=== PATIENT | female | born 1945 | race Caucasian/White ===

== ENCOUNTER → 2017-05-01 | Outpatient (CLI) | payer MEDICARE, OTHER ==
[2017-05-01 12:16] LABS: ALT 31 U/L (9-52); AST 22 U/L (14-36); Alkaline Phosphatase 79 U/L (38-126); Anion Gap 13 mmol/L; Blood Urea Nitrogen 16 mg/dL (7-17); Calcium 9.9 mg/dL (8.4-10.2); Carbon Dioxide 25 mmol/L (22-30); Chloride 105 mmol/L (98-107); Cholesterol 228 mg/dL (<200); Glucose 94 mg/dL (74-99); HDL Cholesterol 66 mg/dL (40-60); Non-African American GFR(MDRD) >60 (>60 ml/min/1.73 sqM); Potassium 4.4 mmol/L (3.5-5.1); Sodium 143 mmol/L (137-145); Total Bilirubin 0.4 mg/dL (0.2-1.3); Total Protein 7.1 g/dL (6.3-8.2)
== END | disposition home or self-care (01) ==
LOC: LABWHC1 10:56
PROVIDERS: ATTEND Internal Medicine Clinical Cardiac Electrophysiology
DX: E78.5 Hyperlipidemia, unspecified (principal); I10 Essential (primary) hypertension; I49.5 Sick sinus syndrome
CPT/HCPCS: 36415; 80053; 80061; 84443

== ENCOUNTER → 2018-02-05 | Outpatient (CLI) | payer MEDICARE, OTHER ==
--- NOTE | 2018-02-05 11:37 | CT ---
EXAMINATION TYPE: CT shoulder RT wo con DATE OF EXAM: 02/05/2018 COMPARISON: Prior CT right shoulder October 24, 2015. HISTORY: Pain in right shoulder, cannot raise arm up. History of right shoulder replacement surgery J une 2015. Pain in shoulder with complete rotator cuff tear per order. Preoperative planning. CT DLP: 321.5 mGycm Automated exposure control for dose reduction was used. FINDINGS: AC joint shows mild to moderate narrowing and capsular hypertrophy. No acute fracture is evident. There are well-corticated lucent defects in triangular pattern on sagittal images through the osseous glenoid with a single central fixating screw through the mid aspect of the osseous glenoid consisten t with plastic prosthesis. There is metallic hardware in the humeral head extending medially causing streak artifact. The metall ic humeral head appears high riding with anteriorly and superiorly displacement relative to the osseo us glenoid, there is advanced joint space loss with bone on metal formation seen on axial images from the medial aspect of metallic humeral head in the anterior osseous glenoid and the coracoid process and undersurface of the acromion. Supraspinatus and infraspinatus muscle bulk is relatively well-pres erved. There is moderate to severe interval atrophy of the subscapularis muscle bulk noted. IMPRESSION: HIGH RIDING METALLIC COMPONENT OF PROSTHESIS IS PRESENT DETAILED ABOVE WITH PRESERVATION OF SUPRAS PINATUS MUSCLE BULK, SUSPECTED RECENT OR ACUTE COMPLETE ROTATOR CUFF TEAR.
== END | disposition home or self-care (01) ==
LOC: RADCTMAIN 07:54
PROVIDERS: ATTEND Orthopaedic Surgery Sports Medicine
DX: M75.121 Complete rotator cuff tear or rupture of right shoulder, not specified as traumatic (principal); M17.12 Unilateral primary osteoarthritis, left knee; M25.561 Pain in right knee; Z96.611 Presence of right artificial shoulder joint

== ENCOUNTER → 2018-03-27 | Outpatient (CLI) | payer MEDICARE, OTHER ==
[2018-03-27 11:58] LABS: HCT 41.6 % (34.0-46.0); HGB 13.7 gm/dL (11.4-16.0); MCH 28.1 pg (25.0-35.0); MCHC 32.9 g/dL (31.0-37.0); MCV 85.3 fL (80.0-100.0); Mean Platelet Volume 6.3; Platelet Count 238 k/uL (150-450); RBC 4.88 m/uL (3.80-5.40); RDW 14.1 % (11.5-15.5); WBC 6.5 k/uL (3.8-10.6)
[2018-03-27 12:15] LABS: Appearance,Urine Clear (Clear); Bilirubin,Urine Negative (Negative); Blood,Urine Negative (Negative); Color,Urine Light Yellow; Glucose,Urine (UA) Negative (Negative); Ketones,Urine Negative (Negative); Leukocyte Esterase,Urine Negative (Negative); Nitrite,Urine Negative (Negative); Protein,Urine Negative (Negative); Specific Gravity,Urine 1.009 (1.001-1.035); Urobilinogen,Urine <2.0 mg/dL (<2.0)
[2018-03-27 12:16] LABS: Partial Thromboplastin Time 23.2 sec (22.0-30.0); Prothrombin Time 10.1 sec (9.0-12.0)
[2018-03-27 12:20] LABS: Albumin 4.3 g/dL (3.5-5.0); Calcium 9.7 mg/dL (8.4-10.2); Potassium 4.4 mmol/L (3.5-5.1); Total Bilirubin 0.6 mg/dL (0.2-1.3); Total Protein 7.2 g/dL (6.3-8.2)
== END | disposition home or self-care (01) ==
LOC: LABPAT 11:14
PROVIDERS: ATTEND Orthopaedic Surgery Sports Medicine
DX: Z01.812 Encounter for preprocedural laboratory examination (principal)
CPT/HCPCS: 36415; 80053; 81003; 85027; 85610; 85730; 87070

== ENCOUNTER 2018-04-03 10:31 | Inpatient (IN) | payer MEDICARE, OTHER ==
[2018-03-26 17:36] VITALS: BMI 24.2
[~2018-04-03 10:31] MED LIST: ACETAMINOPHEN TAB 500 MG TAB PO ONE; DEXAMETHASONE SOD PHOSPHATE 10 MG/ML 1 ML VIAL IV ONE; MELOXICAM 7.5 MG TAB PO ONE; MIDAZOLAM 2 MG/2 ML VIAL IV PRN; ONDANSETRON 4 MG/2 ML VIAL IVP ONE; TRANEXAMIC ACID 1,000 MG in SODIUM CHLORIDE 0.9% 50 ML IVPB ONE; ceFAZolin IN SWFI 2 GM/20 ML SYRINGE IVP ONE; fentaNYL (PF) 50 MCG/ML 2 ML AMP IV PRN
[2018-04-03] MEDS ORDERED: LIDOCAINE 1% 20 ML VIAL (10MG/ML) FOR IV START INTRADERMA ONE (11:15)
[2018-04-03] MEDS: LACTATED RINGERS 1,000 ML IV SCH ×2 (11:16→18:03)
[2018-04-03] MEDS ORDERED: GLYCOPYRROLATE 0.2 MG/ML 2 ML VIAL ONE (11:54)
[2018-04-03] MEDS ORDERED: MIDAZOLAM 2 MG/2 ML VIAL ONE (11:54)
[2018-04-03] MEDS ORDERED: TRANEXAMIC ACID 1,000 MG/10 ML VIAL ONE (11:54)
[2018-04-03] MEDS ORDERED: ROPIVACAINE 5 MG/ML 30 ML VIAL ONE (11:54)
[2018-04-03] MEDS ORDERED: LIDOCAINE 1% INJ 10MG/ML (20 ML MDV) ONE (11:54)
[2018-04-03] MEDS ORDERED: PHENYLEPHRINE-0.9% NACL SYG 1 MG/10 ML SYRINGE ONE (11:54)
[2018-04-03] MEDS ORDERED: NEOSTIGMINE 1 MG/ML 10 ML VIAL ONE (11:54)
[2018-04-03] MEDS ORDERED: ePHEDrine SULFATE/0.9% NACL/PF 50 MG/5 ML SYRINGE IV ONE (11:54)
[2018-04-03] MEDS ORDERED: PROPOFOL 10 MG/ML 20 ML VIAL IV ONE (11:54)
[2018-04-03] MEDS ORDERED: SODIUM CHLORIDE 0.9% 100 ML BAG ONE (11:54)
[2018-04-03] MEDS ORDERED: SUCCINYLCHOLINE CHLORIDE 100 MG/5 ML SYR IV ONE (11:54)
[2018-04-03] MEDS ORDERED: ceFAZolin 3,000 MG in SODIUM CHLORIDE 0.9% IRRIGATIO 3,000 ML IRRIGATION ONE (12:38)
[2018-04-03] MEDS ORDERED: LACTATED RINGERS 1,000 ML IV ONE ×3 (13:51→16:00)
[2018-04-03] MEDS ORDERED: VANCOMYCIN 1,000 MG VIAL MISCELLANE ONE (14:08)
[2018-04-03] MEDS ORDERED: HYDROmorphone 1 MG/ML 1 ML SYRINGE IVP PRN ×3 (14:57)
[2018-04-03] MEDS ORDERED: hydrOXYzine PAMOATE 25 MG CAP PO PRN (14:57)
[2018-04-03] MEDS ORDERED: PROCHLORPERAZINE SUPPOSITORY 25 MG SUPP RECTAL PRN (14:57)
[2018-04-03] MEDS ORDERED: ONDANSETRON 4 MG/2 ML VIAL IVP PRN (14:57)
[2018-04-03] MEDS ORDERED: TEMAZEPAM 15 MG CAP PO PRN (14:57)
[2018-04-03] MEDS ORDERED: diphenhydrAMINE 25 MG CAP PO PRN (14:57)
[2018-04-03] MEDS ORDERED: SENNOSIDES-DOCUSATE SODIUM 1 EACH TAB PO PRN (14:57)
[2018-04-03] MEDS ORDERED: HYDROcodone/APAP 7.5-325MG 1 EACH TAB PO PRN (15:05)
--- NOTE | 2018-04-03 15:29 | XR ---
Right shoulder HISTORY: Postop Single frontal view of the right shoulder Correlation to prior exam 01/19/2016 There is been interval revision of patient's right shoulder arthroplasty. There is anatomic alignment in this single view. There is an overlying drain present. There are overlying leads. IMPRESSION: Orthopedic follow-up.
[2018-04-03] MEDS: ceFAZolin IN SWFI 2 GM/20 ML SYRINGE IVP SCH (20:09)
[2018-04-03] MEDS: DOXYCYCLINE MONOHYDRATE 100 MG CAPSULE PO SCH (20:09)
[2018-04-03] MEDS: METOCLOPRAMIDE 5 MG/ML 2 ML VIAL IVP PRN (20:30)
--- NOTE | 2018-04-03 20:53 | OP ---
OPERATIVE REPORT DATE OF SERVICE: 04/03/2018 SURGEON: Jean Claude Rodriguez MD CERTIFIED RESPIRATORY THERAPIST: Bakari Uribe PA-C PREOPERATIVE DIAGNOSIS: Right shoulder failed total shoulder arthroplasty. POSTOPERATIVE DIAGNOSIS: Right shoulder failed total shoulder arthroplasty. OPERATION: Revision right total shoulder arthroplasty to a right reverse total shoulder arthroplasty. ANESTHESIA: General endotracheal. ESTIMATED BLOOD LOSS: 500 mL. DRAINS: One deep drain. COMPLICATIONS: None apparent. DISPOSITION: Post-Anesthesia Care Unit. INDICATIONS: Sammie is a very pleasant 72-year-old female who underwent a right total shoulder arthroplasty by myself a little over 2 years ago. She has recently developed instability in the shoulder. She said her shoulder subluxes anteriorly with elevation of the shoulder. Workup including x-rays and a CT scan showed a well-fixed glenoid component but a failed rotator cuff. At this point she feels that she has failed conservative management and would like to proceed with operative intervention. Both continued nonoperative management versus operative management were discussed with her. Operative management would involve conversion of her total shoulder arthroplasty to a semi-constrained reverse total shoulder arthroplasty. After a lengthy discussion about the pros and cons of both operative and nonoperative management, she had decided to proceed with operative intervention. The risks of procedure were discussed with her in detail. These risks include but are not limited to risk of infection, nerve damage, bleeding, pain, instability in the shoulder, loosening of the implant and deep infection. There is also a small risk of deep vein thrombosis which could lead to fatal pulmonary embolism. She understands that there is no guarantee as to the improvement of her symptoms. She expressed her understanding of the risks. All of her questions with regard to the procedure were answered to her satisfaction. Appropriate informed consent was obtained. DESCRIPTION OF THE PROCEDURE: The patient was identified in the preoperative holding area. Surgical site was marked by both the patient and myself. She was given 2 grams of Ancef IV for prophylactic purposes. She was then transferred to the operative suite. She was placed supine on the operating room table. General anesthetic was then administered and dosed per the anesthesia department without apparent complication. She was then placed into the beach chair position, well padded in preparation for surgery. Great care was taken to ensure that her neck was in neutral alignment, well padded and maintained that way throughout the operative procedure. Great care was also taken to ensure that her legs were appropriately padded as well. The patient's right upper extremity then prepped and draped in the usual sterile fashion. Standard surgical pause was undertaken to ensure that we were operating on the correct site and that appropriate preoperative antibiotics had been given. All staff in the room were in agreement and we proceeded. The previous incision was then marked with a surgical pen. The incision was then made with a 10 blade scalpel. Dissection was carried down sharply to the deltoid fascia. Hemostasis was achieved with electrocautery. The deltopectoral interval was identified at the level of the clavicle. A small band retractor was then placed onto the proximal deltoid. I then released the deltoid fascia on the lateral aspect of the cephalic vein. The vein was left in its bed medially. The cephalic vein was identified and protected throughout the entire case. I then identified the clavipectoral fascia. This was incised proximally to the level of the coracoacromial ligament. The coracoacromial ligament was left intact. I then used my finger to spread the interval between the conjoint tendon and the subscapularis. I felt for the axillary nerve, which was readily palpable. I then cleared the subacromial and subdeltoid spaces of bursal and scar tissue. I then utilized a Nichols retractor to hold the deltoid and expose the humeral head. The entire supraspinatus, infraspinatus and subscapularis was torn and retracted. I then released the capsule distally in a lazy-S fashion. I continued to release the capsule along the inferior neck in a vertical fashion to about the 6 o'clock position. Great care was taken to ensure the capsule was always visualized as it was released as to avoid injuring the axillary nerve. I then brought a Kiran fishing captain with the arm externally rotated and abducted. I continued to release the capsule inferomedially to the 4 o'clock position. I then proceeded with preparation of the humerus. The humeral head prosthesis was removed; the Vazquez taper was loosened and it was removed. I then proceeded with exposure of the glenoid. The Bhattman retractor was placed on the posterior glenoid rim. I then utilized a microsagittal saw to triangularly cut the [place] glenoid component. The [place] glenoid component was well fixed. There was no loosening. The microsagittal saw was then utilized to triangularly remove the superior and the 2 inferior pegs. I then was able to utilize needle-nosed pliers to unscrew the central aspect of the remaining glenoid component from the Regenerex peg. I then used the trephination reamer supplied in the Biomet set to over-ream the Regenerex peg. The Regenerex peg was then removed with needle-nosed pliers. There was a little bit of inferior bone loss in the glenoid. The remaining bone in the vault anterior, posteriorly and superiorly was in good condition. I then placed a threaded guidepin in the central aspect of the previous central hole for the Regenerex peg. I then placed a standard base plate reamer over the guidepin. Then the glenoid was reamed very gently to accept the standard glenoid base plate. A standard base plate was then opened and then inserted and impacted. I then placed a central screw. It was a 30 mm central screw. This screw had excellent purchase in bone. This compressed the base plate down very nicely. Of note the slight inferior bone loss I did place cancellous chips in the inferior bone loss aspect of the glenoid prior to placing the base plate. The base plate then impacted over the cancellous allograft chips. I then proceeded to place the peripheral screws. The superior and inferior screws were 20 and 25 mm, respectively. The anterior and posterior screws were 15 mm respectively. This provided good fixation of the glenoid base plate. I then placed a standard 36 mm Glenosphere. This was impacted into the base plate, slightly offset inferiorly. I then placed a standard tray and standard polyethylene trial onto the original stem, which was also well fixed. I was unable to reduce the shoulder at this point. We made a few attempts but realized that it was quite tight. At this point I made the decision to remove the humeral stem and recut the proximal humerus to lower the cut and allow for reduction of the reverse shoulder arthroplasty. I utilized a small bur to bur around the proximal aspect of the stem. I was then able to remove the stem without much bone loss at all. I then re-reamed the canal. The 12 mm reamer was left in place. I then recut the proximal humerus at 30 degrees of retrotorsion. I took approximately 5 to 8 mm more bone off of the proximal humerus. I then broached, starting with a 10 mm broach up to a 12 broach. I had an excellent interference fit with the 12 mm broach. This was broached in 30 degrees of retrotorsion. I then proceeded to trial. Now I was able to reduce the shoulder. I trialed with a standard polyethylene, a +3 polyethylene, and then with a +5 standard base plate and a standard polyethylene. The +5 base plate with standard polyethylene had good tension. It was a difficult reduction but not overly difficult. It was stable throughout a full range of motion. The conjoined tendon did not have any undue tension. The deltoid was also tensioned appropriately. I made the decision to proceed with a 12 mini stem, a +5 tray and a standard polyethylene. I then removed the trial stem and impacted the real 12 mini stem in 30 degrees of retrotorsion. I then placed the standard polyethylene onto the +5 tray on the back table. This was then impacted onto the stem. The shoulder was then reduced. Again it was taken through range of motion. It was very stable throughout range of motion. There was no impingement noted. I then proceeded with closure. I then felt for the axillary nerve, which was readily palpable and intact. I then thoroughly irrigated the wound with Irrisept wash. It was then further irrigated with sterile saline solution with antibiotic added. A deep drain was then placed and brought out proximally and away from the incision. Approximately 500 mg of vancomycin powder was then sprinkled deep into the wound. The deltopectoral interval was then closed with 0 Vicryl interrupted suture. Again the wound was thoroughly irrigated with sterile saline solution with antibiotic added via pulse lavage. The remaining 500 mg of vancomycin powder was then sprinkled into the wound. Subcutaneous tissue was closed with 2-0 Vicryl interrupted suture and the skin was closed with 3-0 Quill suture. Dermabond was applied to the incision. Sterile compressive dressing was then applied. The patient's right upper extremity was placed into a standard sling. All sponge and needle counts were deemed correct prior to closure. The patient tolerated the procedure without apparent complication. She was transferred to the recovery room in stable condition. MMODL / IJN: [id number] /
[2018-04-04] MEDS: HYDROcodone/APAP 7.5-325MG 1 EACH TAB PO PRN ×2 (01:13→08:25)
[2018-04-04] MEDS: LACTATED RINGERS 1,000 ML IV SCH ×2 (01:17→06:05)
[2018-04-04] MEDS: ceFAZolin IN SWFI 2 GM/20 ML SYRINGE IVP SCH (03:50)
[2018-04-04] MEDS: METOCLOPRAMIDE 5 MG/ML 2 ML VIAL IVP PRN (05:26)
[2018-04-04 06:55] LABS: Basophils % (A) 0 %; Eosinophils % (A) 0 %; HCT 30.3 % (34.0-46.0); Lymphocytes # (A) 1.4 k/uL (1.0-4.8); Lymphocytes % (A) 16 %; MCH 28.1 pg (25.0-35.0); MCHC 32.6 g/dL (31.0-37.0); MCV 86.3 fL (80.0-100.0); Mean Platelet Volume 6.6; Monocytes # (A) 0.7 k/uL (0-1.0); Monocytes % (A) 8 %; Neutrophils # (A) 6.4 k/uL (1.3-7.7); Neutrophils % (A) 74 %; Platelet Count 193 k/uL (150-450); RBC 3.51 m/uL (3.80-5.40); RDW 14.2 % (11.5-15.5); WBC 8.6 k/uL (3.8-10.6)
[2018-04-04 07:06] LABS: HGB 9.9 gm/dL (11.4-16.0)
[2018-04-04] MEDS: DOXYCYCLINE MONOHYDRATE 100 MG CAPSULE PO SCH (08:26)
[2018-04-04 08:48] VITALS: BP 108/62; PULSE 62; RESP 16; TEMP 98.3
[2018-04-04] MEDS ORDERED: LISINOPRIL 20 MG TAB PO SCH (09:00)
--- NOTE | 2018-04-04 09:41 | P.DS ---
Providers Date of admission: 04/03/18 10:31 Expected date of discharge: 04/04/18 Attending physician: Jean Claude Rodriguez Consults: 04/03/18 14:57 Consult Physician Routine Consulting Provider: Tim Russell Consult Reason/Comments: post op medical management Do you want consulting provider notified?: Yes Primary care physician: Tim Russell - Discharge Diagnosis(es) (1) Osteoarthritis of right shoulder Patient was admitted to the OR on 04/03/2018 to undergo a revision right reverse total shoulder arthroplasty. She had failed conservative measures as an outpatient and desired to proceed with elective surgery after given informed consent. She underwent the above procedure which he tolerated well without complication. Postoperative hospital course has remained without complication. On day of discharge she is afebrile, vital signs stable, labs within acceptable ranges, tolerating by mouth meds and diet, voiding without difficulty , positive flatus, denies abdominal pain or calf pain, pain is controlled on oral pain medication and has no new complaints. Wound is benign, neurovascular status is intact, calf is soft and nontender, abdomen soft and nontender. Review of systems is negative for numbness, tingling, fever, chills, chest pain , shortness breath, nausea, vomiting, dizziness, headaches, slurred speech or other. Current Visit: Yes Status: Acute Priority: Medium Procedures: Revision right reverse total shoulder arthroplasty Patient Condition at Discharge: Good Plan - Discharge Summary Discharge Rx Participant: Yes New Discharge Prescriptions: New Docusate [Colace] 100 mg PO BID #60 capsule HYDROcodone/APAP 7.5-325MG [[place] 7.5-325] 1 - 2 each PO Q6HR PRN #56 tab PRN Reason: Pain No Action Fexofenadine HCl [Zina Allergy] 180 mg PO DAILY Enalapril [Vasotec] 10 mg PO DAILY Aspirin 81 mg PO DAILY #30 chewable Ibuprofen [Motrin Ib] 200 - 400 mg PO Q6H PRN PRN Reason: Pain Discharge Medication List Enalapril [Vasotec] 10 mg PO DAILY 06/23/17 [History] Fexofenadine HCl [Zina Allergy] 180 mg PO DAILY 06/23/17 [History] Aspirin 81 mg PO DAILY #30 chewable 06/26/17 [Rx] Ibuprofen [Motrin Ib] 200 - 400 mg PO Q6H PRN 03/26/18 [History] Docusate [Colace] 100 mg PO BID #60 capsule 04/04/18 [Rx] HYDROcodone/APAP 7.5-325MG [[place] 7.5-325] 1 - 2 each PO Q6HR PRN #56 tab [Rx] Follow up Appointment(s)/Referral(s): Tim Russell MD [Primary Care Provider] - 04/11/18 9:30 am Jean Claude Rodriguez MD [STAFF PHYSICIAN] - 04/10/18 8:35 am Activity/Diet/Wound Care/Special Instructions: Keep wound clean and dry Take meds as directed Follow-up with Dr. Rodriguez in office maintain sling non weightbearing May shower in 3 days if no bleeding Discharge Disposition: HOME SELF-CARE
[2018-04-04 09:51] LABS: Basophils % (A) 0 %; Eosinophils % (A) 0 %; HCT 29.9 % (34.0-46.0); HGB 9.8 gm/dL (11.4-16.0); Lymphocytes # (A) 1.3 k/uL (1.0-4.8); Lymphocytes % (A) 15 %; MCH 28.1 pg (25.0-35.0); MCHC 32.7 g/dL (31.0-37.0); MCV 86.1 fL (80.0-100.0); Mean Platelet Volume 6.6; Monocytes # (A) 0.6 k/uL (0-1.0); Monocytes % (A) 7 %; Neutrophils # (A) 6.4 k/uL (1.3-7.7); Neutrophils % (A) 77 %; Platelet Count 184 k/uL (150-450); RBC 3.48 m/uL (3.80-5.40); RDW 14.2 % (11.5-15.5); WBC 8.4 k/uL (3.8-10.6)
[2018-04-04 10:00] LABS: Anion Gap 8 mmol/L; Blood Urea Nitrogen 17 mg/dL (7-17); Calcium 8.5 mg/dL (8.4-10.2); Carbon Dioxide 24 mmol/L (22-30); Chloride 103 mmol/L (98-107); Glucose 131 mg/dL (74-99); Sodium 135 mmol/L (137-145)
--- NOTE | 2018-04-04 13:22 | P.CONS ---
History of Present Illness - Reason for Consult Medical management of hypertension - History of Present Illness Patient is a 72-year-old white female well-known. She underwent a revision of a right total shoulder arthroplasty on 04/03/2018. This was performed by Dr. Rodriguez. He is resting comfortably one day later. She indicates she had a block at her shoulder and it not needed pain medications until just recently. She is complaining some mild nausea, and had an episode of emesis with breakfast this morning. She denies any chest pains, pressures, shortness of breath hematemesis, hematochezia, or melena. There is an incidental note of normocytic anemia on her blood work. Review of Systems All systems: negative Past Medical History Past Medical History: Hypertension, Osteoarthritis (OA) Additional Past Medical History / Comment(s): HX: BRADYCARDIA, SSS - PACEMAKER PLACED, [employer]. ORTHOSTATIC HYPOTENSION. RT SHOULDER PROBLEMS, ROTATOR CUFF TORN. HX FX RT HIP, LT ARM. History of Any Multi-Drug Resistant Organisms: None Reported Past Surgical History: Hysterectomy, Joint Replacement, Orthopedic Surgery, Pacemaker Additional Past Surgical History / Comment(s): ORTHO: RT PARTIAL HIP. LT TOTAL SHOULDER. LT KNEE SURGERY. ORIF LT ARM. RT TOTAL SHOULDER 2015. Past Anesthesia/Blood Transfusion Reactions: Postoperative Nausea & Vomiting ( PONV) Additional Past Anesthesia/Blood Transfusion Reaction / Comm: Had nausea, said medications helped. Type of Cardiac Device: Permanent Pacemaker Device Placement Date:: 06/2017 Past Psychological History: No Psychological Hx Reported Smoking Status: Never smoker Past Alcohol Use History: Occasional Past Drug Use History: None Reported - Past Family History Mother Family Medical History: No Reported History, CVA/TIA Medications and Allergies Home Medications Medication Instructions Recorded Confirmed Type Enalapril [Vasotec] 10 mg PO DAILY 06/23/17 04/03/18 History Fexofenadine HCl [Zina Allergy] 180 mg PO DAILY 06/23/17 04/03/18 History Aspirin 81 mg PO DAILY #30 chewable 06/26/17 04/03/18 Rx Ibuprofen [Motrin Ib] 200 - 400 mg PO Q6H PRN 03/26/18 04/03/18 History Docusate [Colace] 100 mg PO BID #60 capsule 04/04/18 Rx HYDROcodone/APAP 7.5-325MG [Foster 1 - 2 each PO Q6HR PRN #56 tab 04/04/18 Rx 7.5-325] Allergies Allergy/AdvReac Type Severity Reaction Status Date / Time No Known Allergies Allergy Verified 04/03/18 16:16 Physical Exam Vitals: Vital Signs Temp Pulse Resp BP Pulse Ox 04/04/18 07:30 98.3 F 62 16 108/62 96 04/03/18 23:00 97.8 F 68 18 101/58 96 04/03/18 19:52 98.0 F 60 14 112/63 99 04/03/18 18:45 65 108/60 04/03/18 18:30 62 113/57 04/03/18 18:15 52 L 106/62 04/03/18 18:00 59 L 103/50 04/03/18 17:45 68 96/49 04/03/18 17:30 69 96/49 04/03/18 17:15 72 99/62 04/03/18 17:05 97.6 F 67 18 107/63 98 04/03/18 17:00 97.2 F L 77 16 116/53 96 04/03/18 16:30 68 16 113/57 94 L 04/03/18 15:50 68 16 115/56 94 L 04/03/18 15:31 57 L 16 116/58 95 04/03/18 15:16 61 16 123/58 94 L 04/03/18 15:01 97.1 F L 84 18 149/73 95 Intake and Output 04/03/18 04/04/18 04/04/18 22:59 06:59 14:59 Intake Total 885 140 Output Total 170 Balance 885 -30 Intake: IV 225 Intake, IV Titration 300 140 Amount Lactated Ringers 1,000 ml 300 @ 100 mls/hr IV .Q10H PETER Rx#:[id number] Lactated Ringers 1,000 ml 140 @ 20 mls/hr IV .Q24H PETER Rx#:[id number] Oral 360 Output: Drainage 170 Right Shoulder 170 Other: Voiding Method Toilet # Voids 1 2 Weight 68.039 kg GENERAL: Well-appearing, well-nourished and in no acute distress. She is wearing a shoulder sling her right arm. HEAD: Atraumatic, normocephalic. EYES: Pupils equal round and reactive to light, extraocular movements intact, sclera anicteric, conjunctiva are normal. ENT:nares patent, oropharynx clear without exudates. Moist mucous membranes. NECK: Normal range of motion, supple without lymphadenopathy or JVD, no thyromegaly LUNGS: Breath sounds clear to auscultation bilaterally and equal. No wheezes rales or rhonchi. HEART: Regular rate and rhythm without murmurs, rubs or gallops.S1S2 Normal ABDOMEN: Soft, nontender, normoactive bowel sounds. No guarding, no rebound. No masses appreciated. EXTREMITIES: Right shoulder dressing is clean dry and intact, other extremities show Normal range of motion, no pitting or edema. No clubbing or cyanosis. NEUROLOGICAL: Cranial nerves II through XII grossly intact. Normal speech, normal gait. PSYCH: Normal mood, normal affect. SKIN: Warm, Dry, normal turgor, no rashes or lesions noted. Results CBC & Chem 7: 04/04/18 09:18 04/04/18 09:18 Labs: Abnormal Lab Results - Last 24 Hours (Table) 04/04/18 04/04/18 04/04/18 Range/Units 06:34 09:18 09:18 RBC 3.51 L 3.48 L (3.80-5.40) m/uL Hgb 9.9 L D 9.8 L (11.4-16.0) gm/dL Hct 30.3 L 29.9 L (34.0-46.0) % Sodium 135 L (137-145) mmol/L Glucose 131 H (74-99) mg/dL Assessment and Plan (1) Pacemaker Current Visit: Yes Status: Acute Code(s): Z95.0 - PRESENCE OF CARDIAC PACEMAKER SNOMED Code(s): 156345102 (2) Postoperative nausea and vomiting Current Visit: Yes Status: Acute Code(s): R11.2 - NAUSEA WITH VOMITING, UNSPECIFIED; Z98.890 - OTHER SPECIFIED POSTPROCEDURAL STATES SNOMED Code(s): 0999067 (3) Osteoarthritis of right shoulder Current Visit: Yes Status: Acute Priority: Medium Code(s): M19.011 - PRIMARY OSTEOARTHRITIS, RIGHT SHOULDER SNOMED Code(s): 519095510294078 (4) Essential (primary) hypertension Current Visit: Yes Status: Acute Code(s): I10 - ESSENTIAL (PRIMARY) HYPERTENSION SNOMED Code(s): 82418776 (5) Normocytic anemia Current Visit: Yes Status: Acute Code(s): D64.9 - ANEMIA, UNSPECIFIED SNOMED Code(s): 208497826 (6) Allergic rhinitis Current Visit: Yes Status: Acute Code(s): J30.9 - ALLERGIC RHINITIS, UNSPECIFIED SNOMED Code(s): 97332085 Plan: I'll renew her enalapril, hold her aspirin and Motrin this time. She is receiving Foster for pain from orthopedics. She is doing well and is medically cleared for discharge. Would ask her to follow-up in the office in the next 2 weeks regarding her anemia. Thank you for allowing us to participate in this patient's care.
== END 2018-04-04 14:46 | disposition home or self-care (01) | DRG 483 ==
LOC: 2ORMAIN 10:31 → 3SUR 15:00
PROVIDERS: ADMIT Orthopaedic Surgery Sports Medicine; ATTEND Orthopaedic Surgery Sports Medicine
PROC: 0RPJ0JZ Removal of Synthetic Substitute from Right Shoulder Joint, Open Approach (ICD-10-PCS; 2018-04-03)
PROC: 0RRJ00Z Replacement of Right Shoulder Joint with Reverse Ball and Socket Synthetic Substitute, Open Approach (ICD-10-PCS; principal; 2018-04-03 12:00)
DX: T84.89XA Other specified complication of internal orthopedic prosthetic devices, implants and grafts, initial encounter (principal); Z96.611 Presence of right artificial shoulder joint; Z96.641 Presence of right artificial hip joint; D64.9 Anemia, unspecified; I10 Essential (primary) hypertension; J30.9 Allergic rhinitis, unspecified; M19.011 Primary osteoarthritis, right shoulder; Z79.82 Long term (current) use of aspirin; Z90.710 Acquired absence of both cervix and uterus; Z79.899 Other long term (current) drug therapy; Z95.0 Presence of cardiac pacemaker; I95.1 Orthostatic hypotension; R11.2 Nausea with vomiting, unspecified; Z96.612 Presence of left artificial shoulder joint
CPT/HCPCS: 80048; 85025

== ENCOUNTER 2019-09-29 | Inpatient (IN) | payer MEDICARE | END 2019-10-02 14:29 | DRG 481 | PROVIDERS: ADMIT Orthopaedic Surgery Sports Medicine | PROC: 0QH706Z Insertion of Intramedullary Internal Fixation Device into Left Upper Femur, Open Approach (ICD-10-PCS; principal; 2019-09-30) | CPT/HCPCS: 71045; 73502; 80053; 81001; 85025; 85610; 85730; 86850; 86900; 86901; 87077; 87086; 87186; 93005; 96374; 96375; 99285 ==

== ENCOUNTER → 2022-04-10 | Outpatient (CLI) | payer MEDICARE ==
--- NOTE | 2022-04-10 15:09 | BD ---
EXAMINATION TYPE: Axial Bone Density DATE OF EXAM: 04/10/2022 COMPARISON: NONE CLINICAL HISTORY: 76 years year old Female. ICD-10 CODE: Z78.0 asymptomatic menopausal state Height: 5 FT 3 1/2 IN Weight: 140 FRAX RISK QUESTIONS: Alcohol (3 or more units per day): NO Family History (Parent hip fracture): YES Glucocorticoids (More than 3mos): NO (Ex: prednisone, prednisolone, methylprednisolone, dexamethasone, and hydrocortisone). History of Fracture in Adulthood: YES Secondary Osteoporosis: 1. Type 1 Diabetes: NO 2. Hyperthyroidism: NO 3. Menopause before 45: NO 4. Malnutrition: NO 5. Chronic liver disease: NO Rheumatoid Arthritis: NO Current Tobacco Use: NO RISK FACTORS HISTORY OF: Hip Fracture (Right/Left): LEFTAND RT When: 2020LEFT RT HIP 11 YEARS AGO History of Wrist Fracture: LEFT WRIST When: UNSURE Surgery to Spine/Hip(right/left)/Wrist (right/left): LEFT HIP 2019 ,RT HIP 11 YEARS AGO ,LEFT WRIST U NSURE OF YEAR Family History of Osteoporosis: UNSURE Active: YES Diet low in dairy products/other sources of calcium: NO Postmenopausal woman: YES Take estrogen and/or progesterone medications: NONE NOW Lost more than 2 inches in height since high school: YES Frequent falls: NO Poor Health: GOOD Hyperparathyroidism: NO Adrenal Insufficiency: NO MEDICATIONS: Additional Medications: LISINOPRIL, Additional History: EXAM MEASUREMENTS: Bone mineral densitometry was performed using the ELVPHD System. Bone mineral density as measured about the Lumbar spine is: ----- L1-L4(G/cm2): 1.038 T Score Values are as follows: ----- L1: -1.6 ----- L2: -2.1 ----- L3: -0.5 ----- L4: -0.7 ----- L1-L4: -1.2 PREV DONE ELSEWHERE Bone mineral density about the R Wrist (g/cm2): 0.505 T Score values are as follows: -----Dist. R+U: -2.8 -----Prox. R+U: -2.0 -----Radius total: -2.8 PREV DONE ELSEWHERE IMPRESSION: Osteopenia (T Score between -2.5 and -1). There is slightly increased risk of fracture and the patient may be considered for treatment. Re-Screen 2-5 years. NOTE: T-SCORE=SD OF THE YOUNG ADULT MEAN.
== END | disposition home or self-care (01) ==
LOC: RADBDWWP 12:58
PROVIDERS: ATTEND Family Medicine
DX: M81.0 Age-related osteoporosis without current pathological fracture (principal); Z78.0 Asymptomatic menopausal state
CPT/HCPCS: 77080

== ENCOUNTER → 2024-01-15 | Outpatient (CLI) | payer MEDICARE ==
[2024-01-15 09:57] LABS: ALT 18 U/L (4-34); African American GFR (CKD) 85 (>60 ml/min/1.73 sqM); Albumin 4.7 g/dL (3.5-5.0); Albumin/Globulin Ratio 1.7; Anion Gap 8 mmol/L; Blood Urea Nitrogen 28 mg/dL (7-17); Carbon Dioxide 28 mmol/L (22-30); Chloride 104 mmol/L (98-107); Globulin 2.7 g/dL; Glucose 72 mg/dL (74-99); Non-African American GFR(CKD) 73 (>60 ml/min/1.73 sqM); Sodium 140 mmol/L (137-145); Total Bilirubin 0.7 mg/dL (0.2-1.3); Total Protein 7.4 g/dL (6.3-8.2)
[2024-01-15 09:59] LABS: AST 34 U/L (14-36); Alkaline Phosphatase 56 U/L (38-126)
[2024-01-15 10:10] LABS: Prothrombin Time 10.6 sec (10.0-12.5)
[2024-01-15 10:13] LABS: Partial Thromboplastin Time 19.2 sec (22.0-30.0)
[2024-01-15 16:14] LABS: HCT 44.3 % (37.2-46.3); MCH 28.2 pg (27.0-32.0); MCHC 31.6 g/dL (32.0-37.0); MCV 89.3 FL (80.0-97.0); Mean Platelet Volume 10.1 FL (9.5-12.2); NRBC Per 100 WBC 0 X 10*3/uL (0.00-0.01); Platelet Count 220 X 10*3/uL (140-440); RBC 4.96 X 10*6/uL (4.10-5.20)
== END | disposition home or self-care (01) ==
LOC: LABPAT 08:50
PROVIDERS: ATTEND Orthopaedic Surgery Sports Medicine
DX: Z01.812 Encounter for preprocedural laboratory examination (principal); Z22.322 Carrier or suspected carrier of Methicillin resistant Staphylococcus aureus
CPT/HCPCS: 36415; 80053; 85027; 85610; 85730; 87070

== ENCOUNTER 2024-01-30 08:05 | Day surgery (SDC) | payer MEDICARE ==
[~2024-01-30 08:05] MED LIST changes: -ACETAMINOPHEN TAB 500 MG TAB PO ONE; -DEXAMETHASONE SOD PHOSPHATE 10 MG/ML 1 ML VIAL IV ONE; +HYDROmorphone 0.5 MG/0.5 ML SYRINGE IVP PRN; -MELOXICAM 7.5 MG TAB PO ONE; -ONDANSETRON 4 MG/2 ML VIAL IVP ONE; +ONDANSETRON 4 MG/2 ML VIAL IVP PRN; +TRANEXAMIC 1,000 MG/100ML-NACL 1,000 MG in SALINE 1 100ML.BAG IVPB PRN; -TRANEXAMIC ACID 1,000 MG in SODIUM CHLORIDE 0.9% 50 ML IVPB ONE; -ceFAZolin IN SWFI 2 GM/20 ML SYRINGE IVP ONE; -fentaNYL (PF) 50 MCG/ML 2 ML AMP IV PRN; +fentaNYL (PF) 50 MCG/ML 2 ML AMP IVP PRN
[2024-01-30] MEDS: IV FLUID CONTINUATION 1,000 ML IV ONE (08:40)
[2024-01-30] MEDS: ACETAMINOPHEN TAB 500 MG TAB PO PRN (08:54)
[2024-01-30] MEDS: LACTATED RINGERS 1,000 ML IV SCH ×2 (08:55→17:03)
[2024-01-30] MEDS: MELOXICAM 7.5 MG TAB PO PRN (08:55)
[2024-01-30] MEDS: GABAPENTIN 300 MG CAP PO PRN (08:55)
[2024-01-30] MEDS: LIDOCAINE 1% (10MG/ML) FOR IV START INTRADERMA PRN (08:55)
[2024-01-30] MEDS: ONDANSETRON 4 MG/2 ML VIAL IVP ONE (08:56)
[2024-01-30] MEDS: DEXAMETHASONE SOD PHOSPHATE 4 MG/ML 1 ML VIAL IV ONE (08:56)
[2024-01-30] MEDS: MIDAZOLAM 2 MG/2 ML VIAL IVP ONE (09:16)
[2024-01-30] MEDS ORDERED: ACETAMINOPHEN TAB 325 MG TAB PO PRN (09:33)
[2024-01-30] MEDS ORDERED: HYDROmorphone 0.5 MG/0.5 ML SYRINGE IVP PRN ×2 (09:33)
[2024-01-30] MEDS ORDERED: bisacodyL 10 MG SUPP RECTAL PRN (09:33)
[2024-01-30] MEDS ORDERED: NALOXONE 0.4 MG/ML 1 ML VIAL IV PRN (09:33)
[2024-01-30] MEDS ORDERED: NA PHOS,M-B/NA PHOS,DI-BA 133 ML ENEMA RECTAL PRN (09:33)
[2024-01-30] MEDS ORDERED: MAGNESIUM HYDROXIDE 2,400 MG/30 ML CUP PO PRN (09:33)
[2024-01-30] MEDS ORDERED: ONDANSETRON 4 MG/2 ML VIAL IVP PRN (09:33)
[2024-01-30] MEDS ORDERED: traMADol 50 MG TAB PO PRN (09:33)
[2024-01-30] MEDS ORDERED: TRANEXAMIC 1,000 MG/100ML-NACL PREMIX BAG ONE (09:52)
[2024-01-30] MEDS ORDERED: PROPOFOL 10 MG/ML 20 ML VIAL IV ONE (09:52)
[2024-01-30] MEDS ORDERED: ROPIVACAINE 5 MG/ML 30 ML VIAL ONE (09:52)
[2024-01-30] MEDS ORDERED: fentaNYL (PF) 50 MCG/ML 2 ML AMP ONE (09:52)
[2024-01-30] MEDS ORDERED: LIDOCAINE 1% INJ 10MG/ML (20 ML MDV) ONE (09:52)
[2024-01-30] MEDS ORDERED: DEXAMETHASONE SOD PHOSPHATE 4 MG/ML 1 ML VIAL ONE (09:52)
[2024-01-30] MEDS: ceFAZolin 1,000 MG in SODIUM CHLORIDE 0.9% 1,000 ML IRRIGATION ONE (10:19)
[2024-01-30] MEDS: LACTATED RINGERS 1,000 ML IV ONE (11:16)
[2024-01-30] MEDS: ROPIVACAINE 1,100 MG, SODIUM CHLORIDE 0.9% 500 ML 330 ML, EMPTY PAIN BALL 1 EACH MISCELLANE PRN (12:07)
[2024-01-30] MEDS: droPERidol 5 MG/2 ML VIAL IVP ONE (12:29)
--- NOTE | 2024-01-30 12:38 | XR ---
EXAMINATION TYPE: XR knee limited LT DATE OF EXAM: 01/30/2024 12:22 PM CLINICAL INDICATION:Female, 78 years old with history of Evaluation for Postop abnormality and alignm ent; [facility] COMPARISON: None. TECHNIQUE: XR knee limited LT; examined in Frontal, lateral and oblique projections. FINDINGS: Status post total knee arthroplasty changes with hardware in appropriate alignment and in tact. No evidence of fracture. Subcutaneous lucencies and lucencies within the joint consistent with surgical changes. IMPRESSION: Status post total knee arthroplasty changes with hardware intact and appropriate alignment. No fractu res identified.
--- NOTE | 2024-01-30 14:27 | OP ---
OPERATIVE REPORT DATE OF SERVICE : 01/30/2024 CORPORATE CONTROLLER: Bakari Uribe PA-C. PREOPERATIVE DIAGNOSIS: Left knee osteoarthrosis. POSTOPERATIVE DIAGNOSIS: Left knee osteoarthrosis. OPERATION: Left total knee arthroplasty. ANESTHESIA: Spinal sedation. ESTIMATED BLOOD LOSS: 100 mL. TOURNIQUET TIME: 44 minutes at 250 mmHg. COMPLICATIONS: None apparent. DRAINS: None. DISPOSITION: Postanesthesia care unit. INDICATIONS: Sammie is a very pleasant 78-year-old female with longstanding history of left knee pain. Her symptoms and examination are consistent with advanced left knee osteoarthrosis. She has been through significant operative management up to this point. Further treatment options were discussed. She decided to go forward with left total knee arthroplasty. Risks of procedure were discussed with her in detail. These risks included, but were not limited to, risk of infection, nerve damage, bleeding, pain, and a small risk of deep vein thrombosis which could lead to fatal pulmonary embolism. There is also a small risk of loosening of the implant which could require revision operation. The patient understands these risks. All of her questions were answered to her satisfaction. Appropriate informed consent was obtained. DESCRIPTION OF THE PROCEDURE: The patient was identified in the preoperative holding area. Surgical site was marked by both patient and myself. She was given 2 g of Ancef IV for prophylactic purposes. We then transported to the operative suite. She was placed supine on the operating room table. A spinal anesthetic was then administered and dosed per the anesthesia department without apparent complication. Examination under anesthesia performed. The patient was 2 to 3 degrees shy of full extension. She had 100 degrees of flexion of medial collateral ligament, lateral collateral ligament, posterior cruciate ligaments were stable. Tourniquet was then placed high on the left upper thigh, well padded in preparation for surgery. The patient's left lower extremity was then prepped and draped in usual sterile fashion. Standard surgical pause was undertaken to ensure that we were operating the correct site and appropriate preoperative antibiotics had been given. All staff in room were in agreement, we proceeded. The outlines of the patella were then marked with a surgical pen. She had a previous anteromedial incision from a procedure she had over 30 years ago. We did connect our incision to that previous scar. The leg was then exsanguinated with an Esmarch dressing. The tourniquet was then inflated to 250 mmHg. The total tourniquet time for the procedure was 44 minutes. Incision was then made with a 10-blade scalpel. Dissection was carried down sharply overlying fascia. Great care was taken to minimize the skin flaps. The knee was then exposed using a standard medial parapatellar approach. A small cuff of quadriceps tendon was then left for suturing. She was in a small bit of valgus preoperatively. Minimal medial release was made. This was done only to allow for placement of a medial retractor. The medial meniscus was then excised as well. The lateral meniscus was also released anteriorly. The leg was then externally rotated. The patella was everted. The knee was flexed. Retractors were then placed to protect the collateral ligaments. I then proceeded to remove the infrapatellar fat pad. This was excised sharply tangentially with the fibers of the patellar tendon. I then proceeded to remove the peripheral osteophytes. This was done with a rongeur. I then proceeded with a distal femoral resection. She did have near full extension. A planned 9-mm resection was then done. The femoral canal was then into the midline the femur approximately 10 mm anterior to the origin of the posterior cruciate ligament. The taryn was then advanced down the center of the femur and placed intramedullary. Based on the preoperative radiographs, the angle between the anatomic and mechanical axis of the femur was approximately 4 to 5 degrees. The valgus angle of the distal round cutting guide was then set at 4 degrees for the left knee. Distal femoral cutting guide was then advanced over the intramedullary taryn. This was seated firmly against the femur. Then as mentioned planned to take 9 mm off the distal femur. The cutting block was then secured to the femur with pins. The jig. The jig was then removed. The distal cut was made through the slot of the block. The pins were removed, the distal cutting block was removed. The accuracy of the distal femoral cuts was checked with 2 flat bars. I then proceeded with femoral sizing. Posterior resting sizing guide was held firmly against the resected distal surface of the femur. The posterior condyles were resting on the posterior plane of the guide. The sizing guide was then placed on the anterior femur. The size measured a size 6. I then assessed for femoral rotation. Plan for 30 degrees of external rotation, 30 degrees of external rotation was placed onto the jig. These holes were then marked. I then confirmed the rotation by 3 separate methods. This was done using epicondylar axis as well as [place] line and posterior referencing. It was deemed that the external rotation was proper. I then went forward with placing the femoral cutting block. This was placed over the previously placed pin holes. The [place] wing was then placed on the anterior slots to ensure that we would not notch the anterior femur with the anterior femoral cut. I then proceeded with the anterior femoral cut. This was flushed with the anterior cortex of the femur. The posterior cuts were then made followed by the anterior chamfer cut, then the posterior chamfer cut. The cutting block was then removed. Throughout the resection, the collateral ligaments were protected with retractors. I then placed a trial size 6 femur. It fit very nice mediolateral and fit flush with the distal end of the femur. The drill hole was then made. I then proceeded with the tibial cut. I planned for cruciate-retaining knee. The guide was placed and set for varus valgus and for slope. Height set for approximate 2 mm resection from the lateral tibial plateau which was having alignment of resection. The cutting block was then pinned to the proximal tibia. The alignment taryn was removed. The proximal tibia was resected with a reciprocating saw. Again, this was done with retractors protecting the collateral ligaments as well as the posterior cruciate ligament. I then proceeded to evaluate the flexion extension gaps. A 10-mm block was then placed. The flexion extension gaps were equal. I then proceeded with resection of posterior osteophytes. There were very minimal posterior osteophytes. This done using a curved osteotome. This resected the posterior osteophytes, and posterior capsular stripping was done off the posterior aspect of the femur. The osteophytes were then removed. I then proceeded with resection of the patella. The thickness of the patella was measured using the caliper. Approximately 14 times tried there was the thickness was approximately 22 mm. The thickness of the anticipated patellar dome was taken into account. Resection was then performed and confirmed to be equal in 4 quadrants using a caliper. Approximately 14 mm of bone remained after resection. A 29 x 8 standard patellar trial was then placed. The holes were drilled. The trial was then placed. I then proceeded to size the tibial plate. A size D tibial plate fit very nicely. I then placed the trial femur, the tibial tray, and the patellar button. A 10 mm trial tibial insert was also placed. The components fit very nicely. She had full extension and flexion. The extension and flexion gaps were equal and stable to both varus and valgus stress. The patella tracked appropriately. The tibial tray rotation was then marked with a Bovie. This was externally rotated properly. I then proceeded with tibial preparation. I first drilled the femoral holes and removed the femoral component. The tibial tray was then set for proper external rotation as well as medial lateral placement of the tibia. This was then pinned into place. I then proceeded with punching the keel. Thus, I then decided to proceed with cementing of all our components. The knee was thoroughly irrigated with sterile saline solution via pulse lavage. The lateral geniculate artery was identified and cauterized. All blood was removed from the bone of the tibia femur and patella with pulsed lavage I then proceeded with cementing. Antibiotic bone cement was prepared on the back table by the certified surgical first assistant. I then proceeded with cementing the tibia first. Since the cement was impacted in the keel as well as deeply seated the bone. A second coat cement was then placed. The tibia was then impacted into place. Excess cement was removed with [place]'s and jokers. I then proceeded with cementing of the femoral component. The femoral component was also cemented using standard technique. Excess cement was removed. A 10-mm trial tibial insert was then placed in the knee. It was brought into full extension with a constant axial load placed until the cement had hardened. The patellar component was also cemented. This was held firmly with a compressive device until the cement had dried. When the cement had dried, the knee was taken out of extension. All excess cement was removed from around the prosthesis. I then trialed the 10-mm insert. Flexion extension gaps were appropriate. The knee was stable. It came into full extension. I decided to go forward with a 10-mm medial congruent cross-linked cruciate-retaining tibial insert. Polyethylene was then placed onto the tibial tray and locked into place. The knee was then reduced. The knee was again further irrigated with sterile saline solution with antibiotic added. The tourniquet was then deflated. Total tourniquet time for the procedure was 44 minutes at 250 mmHg. Final components were Lizzie Persona size 6 cruciate-retaining femoral component, size D tibial tray, a 10-mm medial congruent cruciate-retaining polyethylene insert, and a 29 x 8 mm patella. I then proceeded with closure. Again, the knee was thoroughly irrigated. The quadriceps tendon and the medial retinaculum were reapproximated with a #2 Ethibond suture. The extensor mechanism was then closed with #2 Quill suture. Subcutaneous tissues were closed with 2-0 Vicryl interrupted suture. The skin was closed with a running 3-0 Quill suture. Dermabond was applied at the incision. Sterile compressive dressing was then applied. All sponge and needle counts were deemed correct prior to closure. The patient tolerated procedure without apparent complication. She was transferred to recovery room in stable condition. MMODL / IJN: [id number] /
[2024-01-30] MEDS: HYDROmorphone 0.5 MG/0.5 ML SYRINGE IVP PRN (14:43)
[2024-01-30] MEDS: HYDROcodone/APAP 7.5-325MG 1 EACH TAB PO PRN (18:36)
--- NOTE | 2024-01-30 20:09 | P.ANPRN ---
Procedure Note - Anesthesia - Nerve Block Performed Left Adductor Canal Infusion Time Out Performed: Yes Date of Procedure: 01/30/24 Procedure Start Time: :15 Procedure Stop Time: : Location of Patient: PreOp Indication: Acute Post-Operative Pain, Requested by Surgeon Sedation Type: Sedate with meaningful contact maintained Preparation: Sterile Prep, Sterile Dressing Position: Supine Catheter: Indwelling Needle Types: Pajunk Needle Gauge: 21 Ultrasound used to visualize needle placement: Yes Ultrasound used to observe medication spread: Yes Blood Aspirated: No Pain Paresthesia on Injection Noted: No Resistance on Injection: Normal Image Stored and Saved: Yes Events: Uneventful and Well Tolerated (Ropivacaine 0.5% 20 cc plus dexamethasone 4 mg)
--- NOTE | 2024-01-30 20:10 | P.ANPRN ---
Procedure Note - Anesthesia - Nerve Block Performed Left iPack Single Time Out Performed: Yes Date of Procedure: 01/30/24 Procedure Start Time: : Procedure Stop Time: Location of Patient: PreOp Indication: Acute Post-Operative Pain, Requested by Surgeon Sedation Type: Sedate with meaningful contact maintained Preparation: Sterile Prep Position: Supine Needle Types: [place]ajunk Needle Gauge: 21 Ultrasound used to visualize needle placement: Yes Ultrasound used to observe medication spread: Yes Blood Aspirated: No Pain Paresthesia on Injection Noted: No Resistance on Injection: Normal Image Stored and Saved: Yes Events: Uneventful and Well Tolerated (Ropivacaine 0.5% 20 cc plus dexamethasone 4 mg)
[2024-01-30] MEDS: SENNOSIDES-DOCUSATE SODIUM 1 EACH TAB PO SCH (21:33)
[2024-01-30] MEDS: ASPIRIN 81 MG PO SCH (21:34)
[2024-01-31 08:54] LABS: Basophils # (A) 0.02 X 10*3/uL (0.00-0.10); Basophils % (A) 0.2 %; Eosinophils # (A) 0.01 X 10*3/uL (0.04-0.35); Eosinophils % (A) 0.1 %; HCT 28.1 % (37.2-46.3); HGB 9.2 g/dL (12.0-15.0); Lymphocytes # (A) 1.46 X 10*3/uL (0.90-5.00); Lymphocytes % (A) 15.1 %; MCH 28.5 pg (27.0-32.0); MCHC 32.7 g/dL (32.0-37.0); Mean Platelet Volume 9.9 FL (9.5-12.2); Monocytes # (A) 1.28 X 10*3/uL (0.20-1.00); Monocytes % (A) 13.2 %; NRBC Per 100 WBC 0 X 10*3/uL (0.00-0.01); Neutrophils # (A) 6.88 X 10*3/uL (1.80-7.70); Neutrophils % (A) 70.9 %; Platelet Count 175 X 10*3/uL (140-440); RBC 3.23 X 10*6/uL (4.10-5.20); RDW 14.2 % (11.5-14.5)
--- NOTE | 2024-01-31 10:22 | P.DS ---
Providers Expected date of discharge: 01/31/24 Attending physician: Jean Claude Rodriguez Consults: 01/30/24 09:33 Consult Physician Routine Consulting Provider: Tim Russell Consult Reason/Comments: post op med management Do you want consulting provider notified?: Yes Primary care physician: Tim Russell - Discharge Diagnosis(es) (1) Osteoarthritis of left knee Patient was admitted to the OR on 01/30/24 to undergo a left total knee arthroplasty. She had failed conservative measures as an outpatient and desired to proceed with elective surgery after given informed consent. She underwent the above procedure which she tolerated well without complication. Postoperative hospital course has remained without complication. On day of discharge she is afebrile, vital signs stable, labs within acceptable ranges, tolerating by mouth meds and diet, voiding without difficulty, positive flatus, denies abdominal pain or calf pain, pain is controlled on oral pain medication and has no new complaints. Wound is benign, neurovascular status is intact, calf is soft and nontender, abdomen soft and nontender. Review of systems is negative for numbness, tingling, fever, chills, chest pain, shortness of breath, nausea, vomiting, dizziness, headaches, slurred speech or other. Current Visit: Yes Status: Acute Priority: Medium Procedures: Left TKA Patient Condition at Discharge: Good Plan - Discharge Summary Discharge Rx Participant: No New Discharge Prescriptions: New Aspirin [Adult Low Dose Aspirin EC] 81 mg PO BID #60 tab Docusate [Colace] 100 mg PO BID #60 capsule Ondansetron [Zofran] 4 mg PO Q8HR PRN #21 tab PRN Reason: Nausea HYDROcodone/APAP 7.5-325MG [[place] 7.5-325] 1 - 2 each PO Q6HR PRN #32 tab PRN Reason: Pain No Action Fexofenadine HCl [Zina Allergy] 180 mg PO DAILY PRN PRN Reason: allergies Cefpodoxime Proxetil [Vantin] 100 mg PO Q12HR Pravastatin Sodium [Pravachol] 20 mg PO DAILY Losartan [Cozaar] 50 mg PO DAILY [employer] 3 tab PO DAILY Ibuprofen [Motrin Ib] 200 mg PO Q8H Triamcinolone Acetonide [Nasacort] 1 spray EA NOSTRIL DAILY PRN PRN Reason: allergies Choline Bitartrate [Choline Sr] 1 tab PO DAILY Discharge Medication List Fexofenadine HCl [Zina Allergy] 180 mg PO DAILY PRN 06/23/17 [History] Cefpodoxime Proxetil [Vantin] 100 mg PO Q12HR 01/28/24 [History] Choline Bitartrate [Choline Sr] 1 tab PO DAILY 01/28/24 [History] Ibuprofen [Motrin Ib] 200 mg PO Q8H 01/28/24 [History] Losartan [Cozaar] 50 mg PO DAILY 01/28/24 [History] Pravastatin Sodium [Pravachol] 20 mg PO DAILY 01/28/24 [History] Premier Beef Organ 3 tab PO DAILY 01/28/24 [History] Triamcinolone Acetonide [Nasacort] 1 spray EA NOSTRIL DAILY PRN 01/28/24 [History] Aspirin [Adult Low Dose Aspirin EC] 81 mg PO BID #60 tab 01/30/24 [Rx] Docusate [Colace] 100 mg PO BID #60 capsule 01/30/24 [Rx] HYDROcodone/APAP 7.5-325MG [[place] 7.5-325] 1 - 2 each PO Q6HR PRN #32 tab 01/30/24 [Rx] Ondansetron [Zofran] 4 mg PO Q8HR PRN #21 tab 01/30/24 [Rx] Follow up Appointment(s)/Referral(s): [facility] [NON[facility]] - 1-2 Days ([facility] will call you to schedule your in home physical therapy visits. ) Jean Claude Rodriguez MD [STAFF PHYSICIAN] - 10 Days Activity/Diet/Wound Care/Special Instructions: Keep wound clean and dry Take meds as directed F/U in office Weight bear as tolerated Discharge Disposition: HOME WITH HOME HEALTH SERVICES
[2024-01-31] MEDS ORDERED: FLUTICASONE NASAL 50MCG/SPRAY 16GM BTL EA NOSTRIL PRN (10:34)
[2024-01-31 10:42] VITALS: BP 116/55; PULSE 50; RESP 18; TEMP 98.5
[2024-01-31] MEDS: MULTIVITAMINS, THERA 1 EACH TAB PO SCH (12:21)
[2024-01-31] MEDS: HYDROcodone/APAP 7.5-325MG 1 EACH TAB PO PRN (12:58)
--- NOTE | 2024-01-31 13:01 | P.PN ---
Progress Note - Text Progress Note Date: 01/31/24 ([id number]) Anesthesiology Postop day 1 status post total knee arthroplasty with adductor canal catheter. Patient doing well. VAS 3 out of 10. Gross strength intact in lower extremity. Afebrile. Denies alterations in sensorium. Catheter site intact. Heart regular rate Lungs nonlabored Abdomen nondistended Assessment: Postop day 1 status post total knee arthroplasty with adductor canal catheter Plan: 1.All questions answered. Maintain catheter 2 more days with patient removal at home. Instructions to be given at discharge. 2.This note was dictated using Neurodyn software. Please be advised there is a potential for misspellings or errors in marine scientist.
[2024-01-31] MEDS: PANTOPRAZOLE 40 MG/10 ML VIAL IVP SCH (15:45)
[2024-01-31] MEDS ORDERED: LOSARTAN 50 MG TAB PO SCH (17:00)
--- NOTE | 2024-01-31 20:25 | P.CONS ---
History of Present Illness - Reason for Consult Consult date: 01/31/24 Medical management Requesting physician: Jean Claude Rodriguez - Chief Complaint Left knee osteoarthritis, status post left total knee arthroplasty - History of Present Illness A pleasant 78-year-old female status post left total knee arthroplasty, tolerated procedure well in a patient with history of hypertension, osteoarthritis, sick sinus syndrome with pacemaker, orthostatic hypotension, PONV and multiple other medical issues. Ambulating, tolerating exertion well. Denies lightheadedness dizziness or focal deficits. Completed stairs with physical therapy. Pain controlled. Denies chest pain, palpitations or shortness of breath. Maintaining O2 sats in the high 90s on room air. Vital signs stable. hemoglobin 9.2, platelets 175. Afebrile, normal WBC. Denies nausea vomiting or diarrhea., Passing flatus. Review of Systems ROS Statement: Those systems with pertinent positive or pertinent negative responses have been documented in the HPI. ROS Other: All systems not noted in ROS Statement are negative. Past Medical History Past Medical History: Coronary Artery Disease (CAD), Hypertension, Osteoarthritis (OA) Additional Past Medical History / Comment(s): HX: BRADYCARDIA, SSS - PACEMAKER PLACED, [employer]. ORTHOSTATIC HYPOTENSION. RT SHOULDER PROBLEMS, ROTATOR CUFF TORN. HX FX RT HIP, LT ARM, seasonal allergies, frequent UTI - last dose current antibiotics 01/30/24 History of Any Multi-Drug Resistant Organisms: None Reported Past Surgical History: Hysterectomy, Joint Replacement, Orthopedic Surgery, Pacemaker Additional Past Surgical History / Comment(s): RT PARTIAL HIP. LT TOTAL SHOULDER, LT KNEE SURGERY age 17, ORIF LT ARM. RT TOTAL SHOULDER 2015 and reverse total right shoulder, left TKR Past Anesthesia/Blood Transfusion Reactions: Postoperative Nausea & Vomiting (PONV) Additional Past Anesthesia/Blood Transfusion Reaction / Comm: PONV w/ 2 of her surgeries, said medications helped. Type of Cardiac Device: Permanent Pacemaker Device Placement Date:: 06/2017 Past Psychological History: No Psychological Hx Reported Smoking Status: Never smoker Past Alcohol Use History: Rare Additional Past Alcohol Use History / Comment(s): 1 drink/year Past Drug Use History: None Reported - Past Family History Mother Family Medical History: CVA/TIA Medications and Allergies Home Medications Medication Instructions Recorded Confirmed Type Fexofenadine HCl [Zina Allergy] 180 mg PO DAILY PRN 06/23/17 01/30/24 History Cefpodoxime Proxetil [Vantin] 100 mg PO Q12HR 01/28/24 01/30/24 History Choline Bitartrate [Choline Sr] 1 tab PO DAILY 01/28/24 01/30/24 History Ibuprofen [Motrin Ib] 200 mg PO Q8H 01/28/24 01/30/24 History Losartan [Cozaar] 50 mg PO DAILY 01/28/24 01/30/24 History Pravastatin Sodium [Pravachol] 20 mg PO DAILY 01/28/24 01/30/24 History Premier Beef Organ 3 tab PO DAILY 01/28/24 01/30/24 History Triamcinolone Acetonide [Nasacort] 1 spray EA NOSTRIL DAILY PRN 01/28/24 01/30/24 History Aspirin [Adult Low Dose Aspirin EC] 81 mg PO BID #60 tab 01/30/24 Rx Docusate [Colace] 100 mg PO BID #60 capsule 01/30/24 Rx HYDROcodone/APAP 7.5-325MG [[place] 1 - 2 each PO Q6HR PRN #32 tab 01/30/24 Rx 7.5-325] Ondansetron [Zofran] 4 mg PO Q8HR PRN #21 tab 01/30/24 Rx Allergies Allergy/AdvReac Type Severity Reaction Status Date / Time No Known Allergies Allergy Verified 01/30/24 08:42 Physical Exam Vitals: Vital Signs Temp Pulse Resp BP Pulse Ox 01/31/24 10:42 98.5 F 50 L 18 116/55 98 01/31/24 06:56 97.8 F 52 L 17 100/54 97 01/31/24 02:00 99.1 F 53 L 16 125/56 96 Intake and Output 01/31/24 01/31/24 01/31/24 06:59 14:59 22:59 Other: Voiding Method Toilet # Voids 1 VITAL SIGNS: [As above] GENERAL: Pleasant, alert and oriented x 3, sitting up at side of bed, no acute distress HEENT: Normocephalic, atraumatic conjunctivae normal. eyes normal. NECK: Supple, no JVD. CARDIOVASCULAR: S1, S2 regular.No murmur RESPIRATION: Unlabored, equal air entry, clear to auscultation. ABDOMEN: Soft, nontender . No guarding. no masses palpable. No ascites, No hepatosplenomegaly.Bowel sounds heard. LEGS: Left lower extremity dressing clean dry and intact, minimal edema, positive DP pulse. No calf tenderness, positive DP pulse NERVOUS SYSTEM: Cranial N 2-12 grossly normal. Moves all 4 limbs. No focal deficits. Strength and sensation grossly intact. Skin: Warm and dry, no rash Results CBC & Chem 7: 01/31/24 05:39 Labs: Abnormal Lab Results - Last 24 Hours (Table) 01/31/24 Range/Units 05:39 RBC 3.23 L (4.10-5.20) X 10*6/uL Hgb 9.2 L (12.0-15.0) g/dL Hct 28.1 L (37.2-46.3) % Immature Gran # 0.05 H (0.00-0.04) X 10*3/uL Monocytes # 1.28 H (0.20-1.00) X 10*3/uL Eosinophils # 0.01 L (0.04-0.35) X 10*3/uL Assessment and Plan Assessment: Left knee osteoarthritis, failed conservative treatment , status post total arthroplasty left knee Postop acute blood loss anemia, expected. Repeat BMP outpatient in 3 days Atelectasis, postoperative, expected. Instructed to continue using incentive spirometer every hour x 10 while awake x 2 weeks at discharge Recent UTI, finishing up her last day of oral antibiotics. Repeat follow-up UA with culture outpatient. Hypertension, patient to resume her Cozaar this afternoon. Sick sinus syndrome, history of PPM PONV, history of, stable Plan: Continue on current medication resume ,monitoring and symptomatic treatment. Aggressive pulmonary toileting with incentive spirometer reinforced and to continue at discharge. Discharge planning in progress as per orthopedic surgery. DVT prophylaxis and pain management as per orthopedic surgery. Follow-up with PCP in [address] Rodriguez for the consult. The impression and plan of care has been dictated as directed. : I performed a history and examination of this patient, discussed the same with the dictator. I agree with the dictator's note ,documented as a scribe. Any additional findings or plans will be noted.
== END 2024-01-31 13:02 | disposition home health service (06) ==
LOC: OR 08:05 → 4SSUR 13:32 → OR 01-31 13:02
PROVIDERS: ATTEND Orthopaedic Surgery Sports Medicine
DX: I10 Essential (primary) hypertension (principal); Z95.0 Presence of cardiac pacemaker; Z82.2 Family history of deafness and hearing loss; Z86.79 Personal history of other diseases of the circulatory system; Z79.891 Long term (current) use of opiate analgesic; Z79.899 Other long term (current) drug therapy
CPT/HCPCS: 97161; 64999; 64448; 85025; 73560; 27447; C1776; C1713; C1751; J2250; J1100; J0690 ×3; J2405; J2795; J1170; J1790

== ENCOUNTER → 2024-10-19 | Outpatient (CLI) | payer MEDICARE ==
--- NOTE | 2024-10-19 16:50 | US ---
EXAMINATION TYPE: US kidneys/renal and bladder DATE OF EXAM: 10/19/2024 COMPARISON: NONE CLINICAL INDICATION: Female, 78 years old with history of N39.0 RECURRENT UTI; UTI TECHNIQUE: Grayscale imaging of the bilateral kidneys and urinary bladder: FINDINGS: EXAM MEASUREMENTS: Right Kidney: 8.6 x 4.3 x 3.9 cm Left Kidney: 10 x 4.2 x 4.5 cm Right Kidney: No hydronephrosis or masses seen Left Kidney: No hydronephrosis or masses seen Bladder: anechoic Bilateral Jets seen: yes There is no evidence for hydronephrosis at this point in time. No nephrolithiasis is seen. No abel s are identified. The urinary bladder is anechoic. IMPRESSION: No evidence for obstructive uropathy or renal calculus. [facility], , 10/19/2024 4:48 PM
== END | disposition home or self-care (01) ==
LOC: RADUSWWP 15:48
PROVIDERS: ATTEND Internal Medicine
DX: N39.0 Urinary tract infection, site not specified (principal)
CPT/HCPCS: 76770